=== PATIENT | female | born 1940 | race Caucasian/White ===

== ENCOUNTER 2016-10-17 16:00 | Emergency (ER) | payer MEDICARE, OTHER ==
--- NOTE | 2016-10-17 16:43 | ER Document Report ---
ED Medical Screen (RME) - General Stated Complaint: FALL/HEAD PAIN Time seen by provider: 16:38 Mode of Arrival: Ambulatory Information source: Patient Notes: 76-year-old female presents to ED for fall on Sunday and hit her head on the cabinet door. She states she was standing at the refrigerator and she doesn't know why she fell. She states sometimes she gets dizzy headaches but she was not dizzy at that time. States she was put on Coumadin and florid after a heart catheter and started on xeralto last year. States she's on xeralto and the doctor at [facility] stated he needs to have her head checked. She states she has fluid on her lungs and they have been working on her lungs. I have greeted and performed a rapid initial assessment of this patient. A comprehensive ED assessment and evaluation of the patient, analysis of test results and completion of medical decision making process will be conducted by an additional ED providers. Physical Exam - Vital signs Vitals: Temp Pulse Resp BP Pulse Ox 98.0 F 79 16 140/71 H 93 10/17/16 16:32 10/17/16 16:32 10/17/16 16:32 10/17/16 16:32 10/17/16 16:32 Course - Vital Signs Vital signs: Temp Pulse Resp BP Pulse Ox 98.0 F 79 16 140/71 H 93 10/17/16 16:32 10/17/16 16:32 10/17/16 16:32 10/17/16 16:32 10/17/16 16:32
--- NOTE | 2016-10-17 17:47 | ER Document Report ---
[id number]/HEAD PAIN Mode of Arrival: Ambulatory Notes: The patient is a 76-year-old female, past medical history A. fib on [place], presents after she tripped 3 days ago and landed on the back of her head. She has a history of vertigo and had vertiginous symptoms prior to the fall. She told her son today and called her primary care physician who instructed her to go to the emergency room. She denies headache, numbness, tingling, neck pain, LOC, ataxia, blurry vision, chest pain, shortness of breath, fevers or cough. TRAVEL OUTSIDE OF THE [place] IN LAST 30 DAYS: No - Related Data Allergies/Adverse Reactions: codeine Adverse Reaction (Verified 10/17/16 16:43) itching Past Medical History - General Information source: Patient - Social History Smoking Status: Never Smoker Family History: Reviewed & Not Pertinent Patient has suicidal ideation: No Patient has homicidal ideation: No Renal/ Medical History: Denies: Hx Peritoneal Dialysis Review of Systems - Review of Systems Notes: REVIEW OF SYSTEMS: CONSTITUTIONAL: -fevers, -chills EENT: -eye pain, -difficulty swallowing, -nasal congestion CARDIOVASCULAR:-chest pain, -syncope. RESPIRATORY: -cough, -SOB GASTROINTESTINAL: -abdominal pain, - nausea, -vomiting, -diarrhea GENITOURINARY: -dysuria, -hematuria MUSCULOSKELETAL: -back pain, -neck pain SKIN: -rash or skin lesions. HEMATOLOGIC: -easy bruising or bleeding. LYMPHATIC: -swollen, enlarged glands. NEUROLOGICAL: -altered mental status or loss of consciousness, -headache, - neurologic symptoms PSYCHIATRIC: -anxiety, -depression. ALL OTHER SYSTEMS REVIEWED AND NEGATIVE. Physical Exam - Vital signs Vitals: Temp Pulse Resp BP Pulse Ox 98.0 F 79 16 140/71 H 93 10/17/16 16:32 10/17/16 16:32 10/17/16 16:32 10/17/16 16:32 10/17/16 16:32 - Notes Notes: PHYSICAL EXAMINATION: GENERAL: Well-appearing, well-nourished and in no acute distress. HEAD: Atraumatic, normocephalic. EYES: Pupils equal round and reactive to light, extraocular movements intact, sclera anicteric, conjunctiva are normal. ENT: nares patent, oropharynx clear without exudates. Moist mucous membranes. NECK: Normal range of motion, supple without lymphadenopathy LUNGS: Breath sounds clear to auscultation bilaterally and equal. No wheezes rales or rhonchi. HEART: Regular rate and rhythm without murmurs ABDOMEN: Soft, nontender, normoactive bowel sounds. No guarding, no rebound. No masses appreciated. EXTREMITIES: Normal range of motion, no pitting or edema. No cyanosis. NEUROLOGICAL: Cranial nerves grossly intact. Normal speech, normal gait. Normal sensory, motor, and reflex exams. PSYCH: Normal mood, normal affect. SKIN: Warm, Dry, normal turgor, no rashes or lesions noted. Course - Re-evaluation Re-evalutation: CT head is negative for fractures or bleeds. Patient asymptomatic. Fall happened 3 days ago. She has appointment with her primary care physician tomorrow. Told her to discuss the dizziness episodes. - Vital Signs Vital signs: Temp Pulse Resp BP Pulse Ox 97.5 F 82 14 132/84 H 98 10/17/16 18:16 10/17/16 18:16 10/17/16 18:16 10/17/16 18:16 10/17/16 18:16 - Diagnostic Test Radiology reviewed: Image reviewed, Reports reviewed Radiology results interpreted by me: CT Head: NAD Discharge - Discharge Clinical Impression: Head contusion Qualifiers: Encounter type: initial encounter Contusion of head detail: scalp Qualified Code(s): S00.03XA - Contusion of scalp, initial encounter Condition: Good Disposition: HOME, SELF-CARE Additional Instructions: Your CAT scan of your head does not show any bleeds or fractures. Follow-up with your primary care physician tomorrow for further evaluation and treatment. Contusion Your injury has resulted in a contusion -- a crushing of the deep tissues. No injury to important structures was detected during the physician's exam. Contusions vary in the amount of pain they cause, and in the length of time required for healing. Typically, the area will become bruised, and will remain painful to touch for two or three weeks. However, most patients are back to working and playing within a few days. After the initial period of rest and cold-packs, your symptoms (together with the doctor's recommendations) will determine how rapidly you can get back to full activity. Usually this means "do what feels okay, but don't do things that hurt." If re-examination was recommended, it's important to follow up as instructed. Call the doctor or return any time if pain increases, if swelling becomes severe, if you develop numbness or weakness in an injured extremity, or if any other alarming symptoms occur. Referrals: NELLY BAIN MD [Primary Care Provider] - Follow up as needed
[2016-10-17 18:19] VITALS: BP 132/84
== END 2016-10-17 18:14 | disposition home or self-care (01) ==
LOC: ER 16:00
DX: S00.03XA Contusion of scalp, initial encounter (principal); W19.XXXA Unspecified fall, initial encounter; I48.91 Unspecified atrial fibrillation; Z79.01 Long term (current) use of anticoagulants
CPT/HCPCS: 70450; 99284

== ENCOUNTER 2019-07-17 05:48 | Emergency (ER) | payer MEDICARE, OTHER ==
[2019-07-17 06:20] VITALS: BP 178/87
[2019-07-17] MEDS ORDERED: NEOMY SULF/POLYMYX B SULF/HC OTIC SUSP 10 ML AD ONE (07:04)
--- NOTE | 2019-07-17 07:15 | ER Document Report ---
HPI - HPI Patient complains to provider of: Left ear pain Time Seen by Provider: 07/17/19 06:30 Pain Level: Denies Context: Patient is a 79-year-old female presents to the emergency department for bleeding from her left ear. States she woke up this morning and saw that there was blood on her pillow. Patient voices no pain, denies any trauma or injury. Denies use of Q-tips or placing anything in her left ear. States sometimes when she gets her hair done she does get water in her ears. She is denying any URI symptoms, or fevers. Patient voices she does take Xarelto, notes only a scant amount of bleeding from the left ear. - CONSTITUTIONAL Constitutional: DENIES: Fever, Chills - EENT EENT: DENIES: Ear Pain Past Medical History - General Information source: Patient - Social History Smoking Status: Current Some Day Smoker Frequency of alcohol use: None Drug Abuse: None Family History: Reviewed & Not Pertinent Patient has suicidal ideation: No Patient has homicidal ideation: No Renal/ Medical History: Denies: Hx Peritoneal Dialysis Vertical Provider Document - CONSTITUTIONAL Agree With Documented VS: Yes Notes: GENERAL: Alert, interacts well. No acute distress. HEAD: Normocephalic, atraumatic. EYES: Pupils equal, round, and reactive to light. Extraocular movements intact. ENT: Oral mucosa moist, tongue midline. No right tragal tenderness noted, canal with cerumen, TM on visualized. Left TM also and visualized with cerumen and dried blood in canal. Slight left tragal tenderness noted. No mastoid erythema or tenderness noted bilaterally. NECK: Full range of motion. Supple. Trachea midline. No lymphadenopathy appreciated LUNGS: Clear to auscultation bilaterally, no wheezes, rales, or rhonchi. No respiratory distress. HEART: Regular rate and rhythm. No murmur ABDOMEN: Soft, non-tender. Non-distended. Bowel sounds present in all 4 quadrants. EXTREMITIES: Moves all 4 extremities spontaneously. No edema, normal radial and dorsalis pedis pulses bilaterally. No cyanosis. BACK: no cervical, thoracic, lumbar midline tenderness. No saddle anesthesia, normal distal neurovascular exam. NEUROLOGICAL: Alert and oriented x3. Normal speech. cranial nerves II through XII grossly intact. PSYCH: Normal affect, normal mood. SKIN: Warm, dry, normal turgor. - INFECTION CONTROL TRAVEL OUTSIDE OF THE [place] IN LAST 30 DAYS: No Course - Re-evaluation Re-evalutation: 07/17/19 07:16 I discussed with patient at bedside potential diagnosis of otitis externa. Of also discussed close follow-up with primary care provider and ear nose and throat doctor. Patient has no URI symptoms, no story of potential perforated tympanic membrane. I discussed with her extensively at bedside need to follow-up with ENT. We will treat patient with Ciprodex for otitis externa. Patient stable for discharge. - Vital Signs Vital signs: Temp Pulse Resp BP Pulse Ox 97.9 F 66 14 178/87 H 99 07/17/19 06:05 07/17/19 06:05 07/17/19 06:05 07/17/19 06:05 07/17/19 06:05 Discharge - Discharge Clinical Impression: Otitis externa Qualifiers: Otitis externa type: unspecified type Chronicity: acute Laterality: left Qualified Code(s): H60.502 - Unspecified acute noninfective otitis externa, left ear Condition: Stable Disposition: HOME, SELF-CARE Instructions: Use of Ear Drops ([facility]), Otitis Externa ([facility]) Additional Instructions: As we discussed you have been seen and treated in the emergency department for a potential outer ear infection. It is very important that he use antibiotics as we discussed. Is also very important that you follow-up with an ear nose and throat doctor. I have provided phone numbers for this doctor in this packet. Please also follow-up with your primary care provider in the next 12 to 24 hours. Please return to the emergency department for any concerns. Prescriptions: Ciprofloxacin HCl/Dexameth [Ciprodex Otic Suspension 7.5 ml Bottle] 4 drop BID 7 Days #1 bottle Forms: Elevated Blood Pressure Referrals: NELLY BAIN MD [Primary Care Provider] - Follow up as needed SHO MOON DO [ASSOCIATE] - Follow up as needed
[2019-07-17] MEDS ORDERED: CIPROFLOXACIN HCL/DEXAMETH OTIC DROP 7.5 ML AS ONE (07:21)
== END 2019-07-17 07:36 | disposition home or self-care (01) ==
LOC: ER 05:48
DX: H60.502 Unspecified acute noninfective otitis externa, left ear (principal); H92.22 Otorrhagia, left ear; H61.23 Impacted cerumen, bilateral; F17.200 Nicotine dependence, unspecified, uncomplicated; Z79.02 Long term (current) use of antithrombotics/antiplatelets
CPT/HCPCS: J3490

== ENCOUNTER 2020-01-02 14:59 | Emergency (ER) | payer MEDICARE ==
[2020-01-02 15:23] LABS: ABSOLUTE BASOPHILS # (AUTO) 0.1 10^3/uL (0.0-0.2); ABSOLUTE LYMPHOCYTES (AUTO) 1.3 10^3/uL (0.5-4.7); ABSOLUTE MONOCYTES (AUTO) 0.4 10^3/uL (0.1-1.4); ABSOLUTE NEUT (AUTO) 5.7 10^3/uL (1.7-8.2); BASOPHILS % (AUTO) 0.8 % (0-2); EOSINOPHILS % (AUTO) 0.1 % (0-6); HEMATOCRIT 44.7 % (36.0-47.0); HEMOGLOBIN 15.6 g/dL (12.0-15.5); LYMPHOCYTES % (AUTO) 17.4 % (13-45); MEAN CORPUSCULAR HEMOGLOBIN 30.6 pg (27.0-33.4); MEAN CORPUSCULAR HGB CONC 34.9 g/dL (32.0-36.0); MEAN CORPUSCULAR VOLUME 88 fl (80-97); MONOCYTES % (AUTO) 4.8 % (3-13); PLATELET COUNT 202 10^3/uL (150-450); RED BLOOD COUNT 5.09 10^6/uL (3.72-5.28); RED CELL DISTRIBUTION WIDTH 14.3 % (11.5-14.0); SEGMENTED NEUTROPHILS % (AUTO) 76.9 % (42-78); TOTAL CELLS COUNTED % (AUTO) 100 %; WHITE BLOOD COUNT 7.4 10^3/uL (4.0-10.5)
[2020-01-02] MEDS ORDERED: ONDANSETRON HCL INJ/PF 4 MG/2 ML SDV IV ONE ×2 (15:39→17:37)
[2020-01-02 15:40] LABS: ALBUMIN 4.1 g/dL (3.5-5.0); ALKALINE PHOSPHATASE 86 U/L (38-126); ANION GAP 9 (5-19); ASPARTATE AMINO TRANSFERASE 27 U/L (14-36); BILIRUBIN,TOTAL 1.2 mg/dL (0.2-1.3); BLOOD UREA NITROGEN 11 mg/dL (7-20); CALCIUM 9.3 mg/dL (8.4-10.2); CARBON DIOXIDE 29 mmol/L (22-30); CHLORIDE 92 mmol/L (98-107); CREATINE KINASE 57 U/L (30-135); GLUCOSE 137 mg/dL (75-110); POTASSIUM 3.6 mmol/L (3.6-5.0); TOTAL PROTEIN 7.7 g/dL (6.3-8.2)
[2020-01-02 15:52] LABS: CREATINE KINASE MB 1.54 ng/mL (<4.55); TROPONIN I < 0.012 ng/mL
--- NOTE | 2020-01-02 16:09 | RADIOLOGY REPORT (SQ) ---
EXAM DESCRIPTION: CT HEAD WITHOUT IMAGES COMPLETED DATE/TIME: 01/02/2020 3:51 pm REASON FOR STUDY: increased confusion COMPARISON: 10/17/2016 TECHNIQUE: Axial images acquired through the brain without intravenous contrast. Images reviewed wi th bone, brain and subdural windows. Images stored on PACS. All CT scanners at this facility use dose modulation, iterative reconstruction, and/or weight based d osing when appropriate to reduce radiation dose to as low as reasonably achievable (ALARA). [facility]: Dose Right [facility]: CareDose [facility]: Dose Right [facility]: Teradose 4D [facility]: Root Metrics RADIATION DOSE: CT Rad equipment meets quality standard of care and radiation dose reduction techniq ues were employed. CTDIvol: 53.2 mGy. DLP: 1044 mGy-cm. mGy. LIMITATIONS: None. FINDINGS: VENTRICLES: Prominent. CEREBRUM: No masses. No hemorrhage. No midline shift. Areas of low density in the white matter mos t likely due to chronic micro-vascular ischemic change. No evidence for acute infarction. CEREBELLUM: No masses. No hemorrhage. No alteration of density. No evidence for acute infarction. EXTRAAXIAL SPACES: Mild age-related involutional change. No fluid collections. No masses. ORBITS AND GLOBE: New increased lobulated density within the left globe posteriorly. Unremarkable ri ght globe. CALVARIUM: No fracture. PARANASAL SINUSES: No fluid or mucosal thickening. SOFT TISSUES: No mass or hematoma. OTHER: No other significant finding. IMPRESSION: 1. Chronic changes of atrophy and microvascular ischemia. No evidence of acute intracr anial process. 2. Increased density within the posterior left globe likely vitreous hemorrhage. Recommend correlat ion with physical exam and patient history. EVIDENCE OF ACUTE STROKE: NO. TECHNICAL DOCUMENTATION: JOB ID: [id number] Quality ID # [id number]: Final reports with documentation of one or more dose reduction techniques (e.g., Au tomated exposure control, adjustment of the mA and/or kV according to patient size, use of iterative reconstruction technique) 2010 [employer]- All Rights Reserved Reading location - IP/workstation name: [email or web address]
--- NOTE | 2020-01-02 16:24 | ER Document Report ---
ED General - General Chief Complaint: High Blood Pressure Stated Complaint: BLOOD PRESSURE ISSUES Time Seen by Provider: 01/02/20 15:33 Primary Care Provider: NELLY BAIN MD [Primary Care Provider] - Follow up as needed TRAVEL OUTSIDE OF THE [place] IN LAST 30 DAYS: No - HPI Notes: Patient is an 79-year-old female who presents to the emergency department for evaluation. She is not a very good historian. Nursing spoke to the POA in regards to this patient. She lives independently. They think she may have a touch of dementia. Over the last week she has not been feeling well. She is been complaining of an intermittent headache. Today family went to see her and thought she looked pale. They sent her here for further evaluation. The patient states he has pain on the left side of her head and some vertigo. She states that neither of these things are new. - Related Data Allergies/Adverse Reactions: codeine Adverse Reaction (Verified 10/17/16 16:43) itching Home Medications: Synthroid, loratadine, HCTZ, Estroven, sotalol, ezetimibe, ranitidine, Xarelto, rosuvastatin, losartan, Spiriva, pro-air, leave albuterol, meclizine Past Medical History - General Information source: Patient, Relative - Social History Smoking Status: Current Every Day Smoker Frequency of alcohol use: None Drug Abuse: None Family History: Reviewed & Not Pertinent Patient has homicidal ideation: No - Past Medical History Cardiac Medical History: Reports: Hx Atrial Fibrillation, Hx Hypercholesterolemia, Hx Hypertension Pulmonary Medical History: Reports: Hx COPD Endocrine Medical History: Reports: Hx Hypothyroidism Renal/ Medical History: Denies: Hx Peritoneal Dialysis Past Surgical History: Reports: Hx Orthopedic Surgery Review of Systems - Review of Systems Constitutional: See HPI Gastrointestinal: See HPI Neurological/Psychological: See HPI -: Yes All other systems reviewed and negative Physical Exam - Vital signs Vitals: Temp 97.8 F 01/02/20 15:00 - Notes Notes: This is an 79-year-old female who appears her stated age. She is intermittently gagging. She is extremely hard of hearing, slightly drowsy, but does awake to verbal stimuli when it is loud enough. Head is normocephalic and atraumatic, left pupil is mildly constricted, nonreactive, erythema noted. Right pupil is round and reactive. Oral mucosa is moist. Heart is regular in rhythm, lungs encrustation bilaterally. Abdomen soft, nontender, active bowel sounds. Peripheral pulses are equal. Calves are nontender. No cyanosis or clubbing. Skin is warm and dry. Patient is awake and alert. She is hard of hearing, slow to answer questions, but oriented x3. No facial asymmetry. Patient moving all 4 extremity spontaneously. Course - Re-evaluation Re-evalutation: 01/02/20 17:41 Patient presents emergency department for evaluation of headache and vomiting. She has likely dementia, according to the power of [place] attorney, and is a very difficult historian. On exam she does have marked erythema to her eye. I attempted Farzad-Pen measurement of intraocular pressure, it keeps reading error. The intraocular pressure on the right eye was 23. Her funduscopic exam is limited secondary to inability to stay still, and when I moved her upright to do a slit-lamp exam, she could not stop vomiting. At any rate, I do have a strong suspicion of a vitreous hemorrhage. This was as interpreted by the radiologist. She is on Xarelto. The patient cannot tell me why she is on Xarelto. I do not see any scars to her anterior chest consistent with valve replacement, and I do not hear the mechanical click of the heart valve. Patient is in sinus rhythm here. I asked her repeatedly if she has any history of blood clots, she cannot answer this question appropriately for me. Given the bleeding, her symptoms, I am inclined to reverse her anticoagulation. 1500 units of Kcentra are ordered. This is discussed directly with the pharmacy. I do not have ophthalmology on- call. I do think this patient will require admission to the hospital, as she is demented, will not be able to drive in for daily ophthalmologically exams, and her symptoms are still uncontrolled. I have spoken to [facility], I am waiting for a call back from ophthalmology. 01/02/20 18:[address] Betancourt, accounting reconciliation clerk on-call at [facility]. We talked at length. The patient's pupil is nonreactive on that side. It does feel more firm on that side. I am unable to get a pressure, but we do have a suspicion of acute angle-closure. We talked at length about management. He asked for acetamolazide 500 mg p.o., atenolol, brimonidine, and latanoprost to be ad ministered. These are ordered. Awaiting phone call from medicine from [facility]. 01/02/20 19:10 Patient was coughing excessively while I was in the room. She is a longtime smoker. Chest x-ray was read as possible right lower lobe infiltrate. Will administer Rocephin and Zithromax. Patient has not traveled, not been out of the area or the county, has not had any known exposure to PUIs per her POA. I do not believe her to be a COVID risk. - Vital Signs Vital signs: Temp Pulse Resp BP Pulse Ox 97.8 F 26 H 165/100 H 96 01/02/20 15:21 01/02/20 19:00 01/02/20 19:02 01/02/20 18:31 - Laboratory Result Diagrams: 01/02/20 15:11 01/02/20 15:11 Laboratory results interpreted by me: 01/02/20 01/02/20 01/02/20 15:08 15:11 15:11 Hgb 15.6 H RDW 14.3 H PT APTT Sodium 130.3 L Chloride 92 L Glucose 137 H POC Glucose 120 H Urine Protein Urine Glucose (UA) Urine Ketones Urine Blood 01/02/20 01/02/20 15:11 16:22 Hgb RDW PT 17.8 H APTT 36.2 H Sodium Chloride Glucose POC Glucose Urine Protein 100 H Urine Glucose (UA) 50 H Urine Ketones 20 H Urine Blood SMALL H - Diagnostic Test Radiology reviewed: Reports reviewed Radiology results interpreted by me: 01/02/20 16:[address] 01/02/20 00:00 IMPRESSION: 1. Chronic changes of atrophy and microvascular ischemia. No evidence of acute intracranial process. 2. Increased density within the posterior left globe likely vitreous hemorrhage. Recommend correlation with physical exam and patient history. EVIDENCE OF ACUTE STROKE: NO. - EKG Interpretation by Me Additional EKG results interpreted by me: 01/02/20 16:38 Sinus mechanism with rate of 61 bpm. Left axis deviation. No acute ST changes concerning for ischemia or infarction, no old studies available for comparison. Critical Care Note - Critical Care Note Total time excluding time spent on procedures (mins): 55 Discharge - Discharge Clinical Impression: Vitreous hemorrhage of left eye, Left lower lobe pulmonary infiltrate, Hyponatremia Condition: Stable Disposition: REPLACED BY [facility] Admitting Provider: Dr. Andrew Referrals: NELLY BAIN MD [Primary Care Provider] - Follow up as needed
[2020-01-02] MEDS ORDERED: TETRACAINE HCL 0.5% OPH SOLN 4 ML OS ONE (16:33)
[2020-01-02] MEDS ORDERED: MORPHINE SULFATE 10 MG/ML INJ IV ONE ×2 (16:40→17:37)
[2020-01-02 16:46] LABS: APPEARANCE,URINE SLIGHTLY-CLOUDY; BILIRUBIN,URINE NEGATIVE (NEGATIVE); COLOR,URINE YELLOW; GLUCOSE, URINE 50 mg/dL (NEGATIVE); KETONES,URINE 20 mg/dL (NEGATIVE); LEUKOCYTE ESTERASE,URINE NEGATIVE (NEGATIVE); NITRITE,URINE NEGATIVE (NEGATIVE); PROTEIN,URINE 100 mg/dL (NEGATIVE); URINE SPECIFIC GRAVITY 1.011; UROBILINOGEN,URINE NEGATIVE mg/dL (<2.0)
--- NOTE | 2020-01-02 17:48 | EKG REPORT ---
SEVERITY:- BORDERLINE ECG - SINUS RHYTHM BORDERLINE LEFT AXIS DEVIATION BORDERLINE R WAVE PROGRESSION, ANTERIOR LEADS : Confirmed by: Tammi Beaulieu MD 02-Jan-2020 17:47:38
[2020-01-02 17:49] LABS: INTERNATIONAL RATION (INR) 1.45; PROTHROMBIN TIME 17.8 SEC (11.4-15.4)
[2020-01-02 17:50] LABS: PARTIAL THROMBOPLASTIN TIME 36.2 SEC (23.5-35.8)
--- NOTE | 2020-01-02 18:00 | RADIOLOGY REPORT (SQ) ---
EXAM DESCRIPTION: CHEST SINGLE VIEW IMAGES COMPLETED DATE/TIME: 01/02/2020 5:43 pm REASON FOR STUDY: cough COMPARISON: None. EXAM PARAMETERS: NUMBER OF VIEWS: One view. TECHNIQUE: Single frontal radiographic view of the chest acquired. RADIATION DOSE: NA LIMITATIONS: None. FINDINGS: LUNGS AND PLEURA: Small left pleural effusion and left lower mild consolidation may be on the basis of pneumonia. The right lung is clear. Hyperinflation of the lungs and some flattening o f the right hemidiaphragm. No pneumothorax. MEDIASTINUM AND HILAR STRUCTURES: No masses. Contour normal. HEART AND VASCULAR STRUCTURES: Heart normal in size. Normal vasculature. BONES: No acute findings. HARDWARE: None in the chest. OTHER: No other significant finding. IMPRESSION: 1. Small left pleural effusion. Mild consolidation in the left lower lung zone may be on the basis of pneumonia. TECHNICAL DOCUMENTATION: JOB ID: [id number] 2010 [employer]- All Rights Reserved Reading location - IP/workstation name: [email or web address]
[2020-01-02] MEDS ORDERED: NORMAL SALINE 500 ML IV ONE (18:04)
[2020-01-02] MEDS ORDERED: HUM PROTHROMBIN CPLX IV ONE ×6 (18:15)
[2020-01-02] MEDS ORDERED: [UNRECOGNIZED DRUG - OTHER] IV ONE ×6 (18:15)
[2020-01-02] MEDS ORDERED: ACETAZOLAMIDE 250 MG TABLET PO ONE (18:37)
[2020-01-02] MEDS ORDERED: TIMOLOL MALEATE 0.25% OPH SOLN 5 ML OS ONE (18:37)
[2020-01-02] MEDS ORDERED: BRIMONIDINE TARTRATE 0.2% OPH SOLN 5 ML OS ONE (18:38)
[2020-01-02] MEDS ORDERED: LATANOPROST 0.005% OPH SOLN 2.5 ML OS ONE (18:38)
[2020-01-02] MEDS ORDERED: AZITHROMYCIN INJ 500 MG VIAL IV ONE (19:11)
[2020-01-02] MEDS ORDERED: CEFTRIAXONE 1 GM/D5W RTU 1 GM/50 ML RTUPB IV ONE (19:12)
[2020-01-02] MEDS ORDERED: MORPHINE SULFATE 10 MG/ML INJ IV PRN (19:55)
[2020-01-02] MEDS ORDERED: ONDANSETRON HCL INJ/PF 4 MG/2 ML SDV IV PRN (19:56)
[2020-01-02 20:57] VITALS: BP 174/82
== END 2020-01-02 21:30 | disposition short-term general hospital (02) ==
LOC: ER 14:59
DX: H43.12 Vitreous hemorrhage, left eye (principal); R91.8 Other nonspecific abnormal finding of lung field; E87.1 Hypo-osmolality and hyponatremia; R11.10 Vomiting, unspecified; I10 Essential (primary) hypertension; R51 Headache; R05 Cough; R42 Dizziness and giddiness; R40.0 Somnolence; E78.00 Pure hypercholesterolemia, unspecified; I48.91 Unspecified atrial fibrillation; J44.9 Chronic obstructive pulmonary disease, unspecified; E03.9 Hypothyroidism, unspecified; F17.200 Nicotine dependence, unspecified, uncomplicated; Z79.899 Other long term (current) drug therapy; Z79.01 Long term (current) use of anticoagulants
CPT/HCPCS: 93005; 96376; 99291; 96375; 96365; 96366; 96368; 36415; 87040; 82553; 82962; 82550; 85025; 85610; 85730; 80053; 81001; 84484; 71045; 70450; 93010; A9270 ×5; J2270; J2405; J7040; J0456; J0696; J3490; C9132 ×2